=== PATIENT | male | born 1990 | race Two or more races ===

== ENCOUNTER 2021-10-02 00:50 | Emergency (ER) | payer OTHER ==
[~2021-10-02] VITALS: Ht 177.8 cm; Wt 69.9 kg
== END 2021-10-02 02:00 | disposition home or self-care (01) ==
LOC: ER 00:50
DX: W55.03XA Scratched by cat, initial encounter (principal); Y93.89 Activity, other specified; Y92.007 Garden or yard of unspecified non-institutional (private) residence as the place of occurrence of the external cause; Y99.9 Unspecified external cause status